=== PATIENT | female | born 1975 ===

== ENCOUNTER 2020-08-03 11:12 | Emergency (ER) | payer MEDICAID, OTHER ==
[2020-08-03] MEDS ORDERED: Sodium Chloride 0.9% 1000 ML 1,000 ML IV STA (11:37)
[2020-08-03] MEDS ORDERED: Zofran 4 MG/2 ML VIAL IV ONE (11:37)
[2020-08-03] MEDS ORDERED: SUBLIMAZE 100 MCG/2 ML IV ONE (11:37)
[2020-08-03 12:03] LABS: Hematocrit 43.4 % (35-47); Mean Cell Volume 91.9 fl (78-100); Mean Corpuscular Hemoglobin 29.7 pg (26-32); Mean Corpuscular Hgb Concent. 32.3 g/dl (32-36); Mean Platelet Volume 9.3 fl (7.5-11.0); Platelet Count 333 K/mm3 (150-450); Red Blood Count 4.72 M/mm3 (4.1-5.4); White Blood Count 24.1 K/mm3 (4.0-10.5)
[2020-08-03 12:07] LABS: Appearance CLOUDY (CLEAR); Bacteria MODERATE /HPF (NEGATIVE); Bilirubin NEGATIVE (NEGATIVE); Blood NEGATIVE Ery/ul (0-5); Epithelial Cells PACKED /HPF (FEW); Glucose NEGATIVE (NEGATIVE); Ketones TRACE (NEGATIVE); Leukocyte Esterase MODERATE (NEGATIVE); Mucus MANY /HPF (NEGATIVE); Nitrite NEGATIVE (NEGATIVE); Non-Squamous Epithelial Cells RARE /HPF (FEW); Protein,Urine Dip 100 (Negative); RBC 26-50 /HPF (0-2); Specific Gravity 1.019 (1.005-1.025); Urobilinogen 2 mg/dL (0-1); WBC >100 /HPF (0-5)
[2020-08-03 12:17] LABS: ALBUMIN 4.1 g/dL (3.5-5.0); ALKALINE PHOSPHATASE 115 U/L (38-126); AMYLASE 50 U/L (30-110); ANION GAP 11.3 MEQ/L (5-15); BLOOD UREA NITROGEN 9 mg/dL (7-17); CHLORIDE 96 mmol/L (98-107); Calcium 8.7 mg/dL (8.4-10.2); Carbon Dioxide 28 mmol/L (22-30); Creatinine 1 0.73 mg/dL (0.52-1.04); EST GLOMERULAR FILTRATION RATE > 60.0 ML/MIN; Glucose 123 mg/dL (74-106); LIPASE 33 U/L (23-300); Potassium 3.2 mmol/L (3.5-5.1); SGOT/AST 34 U/L (14-36); SGPT/ALT 28 U/L (0-35); SODIUM 132 mmol/L (137-145)
[2020-08-03] MEDS ORDERED: SUBLIMAZE 100 MCG/2 ML ONE (12:21)
[2020-08-03] MEDS ORDERED: Zofran 4 MG/2 ML VIAL ONE (12:21)
[2020-08-03] MEDS ORDERED: Sodium Chloride 0.9% 1000 ML 1,000 ML ONE (12:22)
[2020-08-03 12:29] LABS: Absolute Neutrophil Ct (ANC) 20.41 (1.4-6.9); BAND 11 % (0.0-2.0); Lymphocytes 6 % (24-44); Monocyte 10 % (0.0-12.0); Neutrophils 73 % (36.0-66.0); Platelet Estimate NORMAL (NORMAL); Total Cells Counted 100
--- NOTE | 2020-08-03 12:51 | XRAY ---
Exam: AP portable chest film from 08/03/2020. Comparison: None. Indication: 45-year-old female with pain. Findings: The heart size and contour are normal. The arcadio and mediastinal structures appear intact. The lungs are well inflated. No air space infiltrates, vascular congestion, pneumothorax, or significant pleural effusion is seen. There is minimal right apical pleural thickening. Ornamental bilateral nipple rings are incidentally seen. There is a mild lower mid thoracic dextroscoliosis present. No acute osseous process is seen. Impression: 1. No acute cardiopulmonary process is seen.
[2020-08-03] MEDS ORDERED: ROCEPHIN 1 Gm-D5w 50 ml Bag** 1 G/50 ML IVPB IV STA (15:12)
--- NOTE | 2020-08-03 15:21 | ERPHSYRPT ---
- History of Present Illness Time Seen by Provider: 08/03/20 11:35 Historian: patient Exam Limitations: no limitations Patient Subjective Stated Complaint: abd pain/R flank pain x 5 days Triage Nursing Assessment: pt to ED c/o RLQ and flank pain x 5 days, worsening today. one episode diarrhea this am but no other bowel issues. denies urinary complications. RLQ tender to palp. denies emesis. last PO cranberry juice today but no food since yesterday. rates 08/18 now. Physician History: Patient is a 45-year-old white female who presents with right upper quadrant pain which started 5 days prior to arrival. She had increased pain she has had no nausea or vomiting did have some diarrhea the pain does not really radiate to the back or into the right lower quadrant very well. She denies any previous abdominal surgery. She has had some fever but it has been nondocumented Timing/Duration: day(s) (5) Activities at Onset: none Quality: sharpness, stabbing, throbbing Abdominal Pain Onset Location: RUQ Pain Radiation: no radiation Severity of Pain-Max: moderate Severity of Pain-Current: moderate Modifying Factors: Improves With: nothing Associated Symptoms: fever/chills Previous symptoms: no prior history Allergies/Adverse Reactions: No Known Drug Allergies Allergy (Unverified 08/03/20 11:25) Hx Tetanus, Diphtheria Vaccination/Date Given: Yes Hx Influenza Vaccination/Date Given: Yes Hx Pneumococcal Vaccination/Date Given: No Immunizations Up to Date: Yes Travel Risk - International Travel Have you traveled outside of the country in past 3 weeks: No - Coronavirus Screening Are you exhibiting any of the following symptoms?: Yes Symptoms: Vomiting/Diarrhea Close contact with a COVID-19 positive Pt in past 14-21 Days: No - Vaccine Status Have you recieved a Covid-19 vaccination: No - Review of Systems Constitutional: Fever, No Chills Eyes: No Symptoms Ears, Nose, & Throat: No Symptoms Respiratory: No Cough, No Dyspnea Cardiac: No Chest Pain, No Edema, No Syncope Abdominal/Gastrointestinal: Abdominal Pain, Diarrhea, No Nausea, No Vomiting Genitourinary Symptoms: No Dysuria Musculoskeletal: No Back Pain, No Neck Pain Skin: No Rash Neurological: No Dizziness, No Focal Weakness, No Sensory Changes Psychological: No Symptoms Endocrine: No Symptoms All Other Systems: Reviewed and Negative - Past Medical History Pertinent Past Medical History: No - Past Surgical History Past Surgical History: No - Social History Smoking Status: Current every day smoker How long have you smoked: years Exposure to second hand smoke: Yes Drug Use: marijuana Patient Lives Alone: No - Female History Hx Last Menstrual Period: last month Hx Now: No - Nursing Vital Signs Nursing Vital Signs: Initial Vital Signs Temperature 99.7 F 08/03/20 11:19 Pulse Rate 118 H 08/03/20 11:19 Respiratory Rate 18 08/03/20 11:19 Blood Pressure 138/94 08/03/20 11:19 O2 Sat by Pulse Oximetry 97 08/03/20 11:19 Pain Scale Pain Intensity 5 - Physical Exam General Appearance: moderate distress, alert Eye Exam: PERRL/EOMI, eyes nml inspection Ears, Nose, Throat Exam: normal ENT inspection, pharynx normal, moist mucous membranes Neck Exam: normal inspection, non-tender, supple, full range of motion Respiratory Exam: normal breath sounds, lungs clear, No respiratory distress Cardiovascular Exam: regular rate/rhythm, normal heart sounds Gastrointestinal/Abdomen Exam: soft, normal bowel sounds, tenderness, No mass, No rebound Back Exam: normal inspection, normal range of motion, No CVA tenderness, No vertebral tenderness Extremity Exam: normal inspection, normal range of motion, pelvis stable Neurologic Exam: alert, oriented x 3, cooperative, normal mood/affect, nml cerebellar function, sensation nml, No motor deficits Skin Exam: normal color, warm, dry SpO2: 98 - Course Nursing assessment & vital signs reviewed: Yes - Radiology Exams Chest X-ray Interpretation: Negative - CT Exams Abdomen/Pelvis CT Interpretation: Discussed w/radiologist (Patient has what appears to be multifocal pyelonephritis in the right kidney) Ordered Tests: Active Orders 24 hr Category Date Time Status IV Insertion STAT Care 08/03/20 11:37 Active ABDOMEN AND PELVIS W CONTRAST [CT] Stat Exams 08/03/20 11:38 Taken CHEST 1 VIEW (PORTABLE) Stat Exams 08/03/20 11:38 Completed AMYLASE Stat Lab 08/03/20 11:50 Completed CBC W DIFF Stat Lab 08/03/20 11:50 Completed CMP Stat Lab 08/03/20 11:50 Completed CULTURE,URINE Stat Lab 08/03/20 11:43 Received LIPASE Stat Lab 08/03/20 11:50 Completed Lactic Acid Stat Lab 08/03/20 11:50 Completed Manual Differential NC Stat Lab 08/03/20 11:50 Completed UA W/RFX UR CULTURE Stat Lab 08/03/20 11:43 Completed Medication Summary Generic Name Dose Route Start Last Admin Trade Name Anthony PRN Reason Stop Dose Admin Ceftriaxone Sodium/Dextrose 1 g in 50 mls @ 100 mls/hr 08/03/20 15:12 Rocephin 1 Gm-D5w 50 Ml Bag IV 08/03/20 15:41 STAT STA Discontinued Medications Generic Name Dose Route Start Last Admin Trade Name Anthony PRN Reason Stop Dose Admin Fentanyl Citrate 50 mcg 08/03/20 11:37 08/03/20 12:29 Sublimaze 100 Mcg/2 Ml IV 08/03/20 11:38 50 mcg STAT ONE Administration Fentanyl Citrate Confirm 08/03/20 12:21 Sublimaze 100 Mcg/2 Ml Administered 08/03/20 12:22 Dose 100 mcg .ROUTE .STK-MED ONE Sodium Chloride 1,000 mls @ 999 mls/hr 08/03/20 11:37 08/03/20 12:26 Sodium Chloride 0.9% 1000 Ml IV 08/03/20 12:37 999 mls/hr .Q1H1M STA Administration Sodium Chloride Confirm 08/03/20 12:22 Sodium Chloride 0.9% 1000 Ml Administered 08/03/20 12:23 Dose 1,000 mls @ ud .ROUTE .STK-MED ONE Ondansetron HCl 4 mg 08/03/20 11:37 08/03/20 12:27 Zofran 4 Mg/2 Ml Vial IV 08/03/20 11:38 4 mg STAT ONE Administration Ondansetron HCl Confirm 08/03/20 12:21 Zofran 4 Mg/2 Ml Vial Administered 08/03/20 12:22 Dose 4 mg .ROUTE .STK-MED ONE Lab/Rad Data: Laboratory Result Diagrams 08/03/20 11:50 08/03/20 11:50 Laboratory Results 08/03/20 08/03/20 08/03/20 Range/Units 11:50 11:50 11:50 WBC 24.1 H (4.0-10.5) K/mm3 RBC 4.72 (4.1-5.4) M/mm3 Hgb 14.0 (12.0-16.0) gm/dl Hct 43.4 (35-47) % MCV 91.9 (78-100) fl MCH 29.7 (26-32) pg MCHC 32.3 (32-36) g/dl RDW 13.0 (11.5-14.0) % Plt Count 333 (150-450) K/mm3 MPV 9.3 (7.5-11.0) fl Absolute Granulocytes 20.41 H (1.4-6.9) Segmented Neutrophils 73 H (36.0-66.0) % Band Neutrophils 11 H (0.0-2.0) % Lymphocytes (Manual) 6 L (24-44) % Monocytes (Manual) 10 (0.0-12.0) % Platelet Estimate NORMAL (NORMAL) RBC Morphology NORMAL Sodium 132 L (137-145) mmol/L Potassium 3.2 L (3.5-5.1) mmol/L Chloride 96 L (98-107) mmol/L Carbon Dioxide 28 (22-30) mmol/L Anion Gap 11.3 (5-15) MEQ/L BUN 9 (7-17) mg/dL Creatinine 0.73 (0.52-1.04) mg/dL Estimated GFR > 60.0 ML/MIN Glucose 123 H (74-106) mg/dL Lactic Acid 1.1 (0.4-2.0) Calcium 8.7 (8.4-10.2) mg/dL Total Bilirubin 0.60 (0.2-1.3) mg/dL AST 34 (14-36) U/L ALT 28 (0-35) U/L Alkaline Phosphatase 115 (38-126) U/L Serum Total Protein 7.0 (6.3-8.2) g/dL Albumin 4.1 (3.5-5.0) g/dL Amylase 50 (30-110) U/L Lipase 33 (23-300) U/L Urine Color (YELLOW) Urine Appearance (CLEAR) Urine pH (5-6) Ur Specific [place] (1.005-1.025) Urine Protein (Negative) Urine Ketones (NEGATIVE) Urine Blood (0-5) Boy/ul Urine Nitrite (NEGATIVE) Urine Bilirubin (NEGATIVE) Urine Urobilinogen (0-1) mg/dL Ur Leukocyte Esterase (NEGATIVE) Urine WBC (Auto) (0-5) /HPF Urine RBC (Auto) (0-2) /HPF U Epithel Cells (Auto) (FEW) /HPF Urine Bacteria (Auto) (NEGATIVE) /HPF U Non-Squamous Epi Cells (FEW) /HPF Urine Mucus (Auto) (NEGATIVE) /HPF Urine Culture Reflexed (NO) Urine Glucose (NEGATIVE) mg/dL 08/03/ Range/Units 11:43 WBC (4.0-10.5) K/mm3 RBC (4.1-5.4) M/mm3 Hgb (12.0-16.0) gm/dl Hct (35-47) % MCV (78-100) fl MCH (26-32) pg MCHC (32-36) g/dl RDW (11.5-14.0) % Plt Count (150-450) K/mm3 MPV (7.5-11.0) fl Absolute Granulocytes (1.4-6.9) Segmented Neutrophils (36.0-66.0) % Band Neutrophils (0.0-2.0) % Lymphocytes (Manual) (24-44) % Monocytes (Manual) (0.0-12.0) % Platelet Estimate (NORMAL) RBC Morphology Sodium (137-145) mmol/L Potassium (3.5-5.1) mmol/L Chloride (98-107) mmol/L Carbon Dioxide (22-30) mmol/L Anion Gap (5-15) MEQ/L BUN (7-17) mg/dL Creatinine (0.52-1.04) mg/dL Estimated GFR ML/MIN Glucose (74-106) mg/dL Lactic Acid (0.4-2.0) Calcium (8.4-10.2) mg/dL Total Bilirubin (0.2-1.3) mg/dL AST (14-36) U/L ALT (0-35) U/L Alkaline Phosphatase (38-126) U/L Serum Total Protein (6.3-8.2) g/dL Albumin (3.5-5.0) g/dL Amylase (30-110) U/L Lipase (23-300) U/L Urine Color BILLY (YELLOW) Urine Appearance CLOUDY (CLEAR) Urine pH 5.0 (5-6) Ur Specific [place] 1.019 (1.005-1.025) Urine Protein 100 (Negative) Urine Ketones TRACE (NEGATIVE) Urine Blood NEGATIVE (0-5) Boy/ul Urine Nitrite NEGATIVE (NEGATIVE) Urine Bilirubin NEGATIVE (NEGATIVE) Urine Urobilinogen 2 (0-1) mg/dL Ur Leukocyte Esterase MODERATE (NEGATIVE) Urine WBC (Auto) >100 (0-5) /HPF Urine RBC (Auto) 26-50 (0-2) /HPF U Epithel Cells (Auto) PACKED (FEW) /HPF Urine Bacteria (Auto) MODERATE (NEGATIVE) /HPF U Non-Squamous Epi Cells RARE (FEW) /HPF Urine Mucus (Auto) MANY (NEGATIVE) /HPF Urine Culture Reflexed YES (NO) Urine Glucose NEGATIVE (NEGATIVE) mg/dL - Progress Progress: improved - Departure Departure Disposition: Home Clinical Impression: Pyelonephritis Condition: Stable Critical Care Time: No Referrals: DOCTOR,NO FAMILY [Primary Care Provider] - Instructions: Kidney Infection (DC) Prescriptions: Hydrocodone/Acetaminophen [Hydrocodone-Acetamin 5-325 mg] 1 each PO Q6H 3 Days #12 tablet MDD 4 Cephalexin Mh 500 mg [Keflex 500 mg] 500 mg PO TID 10 Days #30 capsule
[2020-08-03 15:22] VITALS: BP 145/95; PULSE 104; O2SAT 97
[2020-08-03] MEDS ORDERED: ROCEPHIN 1 Gm-D5w 50 ml Bag** 1 G/50 ML IVPB IV ONE (15:22)
--- NOTE | 2020-08-03 15:38 | XRAY ---
Exam: CT of the abdomen and pelvis with IV contrast from 08/03/2020. CTDI: 2.67 mGy Comparison: None. Indication: 45-year-old female with right lower quadrant abdominal pain for about 5 days. Technique: Post-IV contrast axial images were obtained through the abdomen and pelvis during automated injection of 80 ML's of Isovue [address] contrast was given. Reconstructed coronal and sagittal images were created and reviewed. Delayed axial images were obtained as well. Findings: The visualized lung bases appear clear. The transverse heart size is normal. The liver and spleen appear of normal size and uniform attenuation without mass. No intrahepatic biliary duct distention is seen. The gallbladder is mildly distended. No intraluminal calcifications or gallbladder wall thickening is seen. The pancreas and adrenal glands appear unremarkable. The kidneys are unremarkable size and shape. There are several foci of ill-defined decreased attenuation within the right renal cortex which do not meet the criteria for cysts. I doubt that this is due to multifocal neoplasm. It is much more likely this is due to infection such as multifocal pyelonephritis. There is no hydronephrosis. There is a suggestion of a tiny nonobstructing stone within the upper pole of the right kidney on coronal image #75. I believe this can be seen on sagittal image #46 as well. There are at least 2 tiny cysts within the right kidney measuring 5 mm in diameter and less. There is also a tiny cyst within the lower pole and upper pole of the left kidney. Both kidneys function on delayed images. Portions of both ureters are visualized which appear unremarkable. The abdominal aorta is of normal diameter without aneurysm. No abnormal retroperitoneal lymphadenopathy is seen. The patient is quite thin with a paucity of intraperitoneal fat. No free intraperitoneal air or ventral abdominal wall hernia is seen. The appendix is seen within the right lower quadrant. This is best seen on the coronal images. It appears unremarkable. Scattered fecal residue is seen throughout the colon. Some fluid-filled small bowel loops are seen within the lower abdomen and pelvis, perhaps due to ileus. Consider enteritis. No bowel wall thickening is seen. The uterus is anteflexed. I see no abnormal pelvic lymphadenopathy or free intraperitoneal fluid. The urinary bladder is mostly empty. No gross abnormality of either ovary is seen. A few calcified phleboliths are seen. The inguinal regions appear unremarkable. The skeleton reveals no acute fracture or aggressive bone lesion. Small anterior lateral vertebral endplate spurs are seen within the visualized lower thoracolumbar spine. Impression: 1. The appendix appears unremarkable within the right lower quadrant. 2. I note several areas of ill-defined low attenuation within the right renal cortex which do not fit the criteria for cysts. It is likely this is due to multifocal pyelonephritis within the right kidney. 3. Incidentally, there is a tiny nonobstructing stone within the upper pole of the right kidney, as discussed above. No hydronephrosis or obstructive uropathy is seen. 4. Some nondilated fluid-filled small bowel is seen within the lower abdomen and pelvis, perhaps due to a mild ileus. Correlate clinically to exclude enteritis. No bowel wall thickening is seen. Scattered fecal residue is seen within the colon. 5. No other acute process is seen within the abdomen and pelvis.
== END 2020-08-03 16:13 | disposition home or self-care (01) ==
LOC: ED 11:12
DX: N12 Tubulo-interstitial nephritis, not specified as acute or chronic (principal); R10.9 Unspecified abdominal pain; R10.11 Right upper quadrant pain; R50.9 Fever, unspecified; R19.7 Diarrhea, unspecified
CPT/HCPCS: 36415; 71045; 74177; 80053; 81001; 82150; 83605; 83690; 85025; 87077; 87086; 87186; 96365; 96374; 96375; 99284; J0696; J2405; J3010